=== PATIENT | male | born 1985 | race Hispanic/Latino ===

== ENCOUNTER 2023-12-08 18:58 | Emergency (ER) | payer SELFPAY ==
[2023-12-08] MEDS ORDERED: Ketorolac Tromethamine 30 MG (1 mL) VIAL ONE (20:32)
== END 2023-12-08 20:40 | disposition home or self-care (01) ==
LOC: CSHERS 18:58
DX: M25.562 Pain in left knee (principal)
CPT/HCPCS: 96372; J1885